=== PATIENT | female | born 1945 | race Caucasian/White ===

== ENCOUNTER 2022-08-21 15:49 | Inpatient (IN) | payer MEDICARE, OTHER ==
[~2022-08-21] VITALS: Ht 172.7 cm; Wt 96.1 kg
[2022-08-21 16:25] LABS: BASOPHILS ABSOLUTE AUTO 0.04 K/mm3 (0.00-0.23); BASOPHILS PERCENT AUTO 0 % (0-2); EOSINOPHILS ABSOLUTE AUTO 0.09 K/mm3 (0.00-0.68); EOSINOPHILS PERCENT AUTO 1 % (0-6); Hematocrit 41.8 % (33.0-51.0); Hemoglobin 14.1 g/dL (11.5-16.0); IMMATURE GRAN ABSOLUTE AUTO 0.04 K/mm3 (0.00-0.10); IMMATURE GRAN PERCENT AUTO 0 % (0-1); LYMPHOCYTES ABSOLUTE AUTO 1.63 K/mm3 (0.84-5.20); LYMPHOCYTES PERCENT AUTO 15 % (21-46); MONOCYTES ABSOLUTE AUTO 1.41 K/mm3 (0.16-1.47); MONOCYTES PERCENT AUTO 13 % (4-13); Mean Corpuscular HGB 28.8 pg (26.0-34.0); Mean Corpuscular HGB Conc 33.7 g/dL (31.5-36.5); Mean Corpuscular Volume 85 fL (80-100); Mean Platelet Volume 11.8 fL (9.1-12.4); NEUTROPHILS ABSOLUTE AUTO 7.63 K/mm3 (1.96-9.15); NEUTROPHILS PERCENT AUTO 70 % (41-73); Platelet Count 226 K/mm3 (150-400); RDW Coefficient Variation 13.6 % (11.7-14.2); RDW Standard Deviation 42.6 fL (35.1-46.3); White Blood Cell Count 10.84 K/mm3 (4.00-11.30)
[2022-08-21 16:49] LABS: Albumin, Blood 3.6 g/dL (3.4-5.0); Bilirubin, Total 0.5 mg/dL (0.1-1.0); Bun/Creatinine Ratio 15.1 (12.0-20.0); Calcium, Blood 11.8 mg/dL (8.5-10.1); Creatinine, Blood 2.59 mg/dL (0.40-1.00); Globulin, Blood 3.7 g/dL (2.2-4.0); Potassium, Blood 2.6 mmol/L (3.5-5.5); Total Protein, Blood 7.3 g/dL (6.4-8.2)
--- NOTE | 2022-08-21 20:17 | NUR ---
assisted patient from bed to bedside commode. Ileana required very frequent cueing and redirection with 2 assist. urine was yellow with sediment and extremely odorous. will notify MD and request US. In addition, do not feel SCD's would be safe for this patient as she has attempted twice to get OOB without calling for assist after instruction. Alarm on, bed locked and in low position. will continue close monitoring
[2022-08-22 01:41] LABS: Source, Urine Clean Catch
[2022-08-22 01:50] LABS: Bilirubin, Urine Neg (Neg); Blood, Urine 1+ (Neg); Glucose Qualitative, Urine Neg (Neg); Ketones, Urine Neg (Neg); Leukocyte Esterase, Urine 1+ (Neg); Nitrite, Urine Pos (Neg); Protein, Urine 1+ (Neg); Urobilinogen, Urine NORM (Normal)
[2022-08-22 01:51] LABS: Appearance, Urine Hazy (Clear); Color, Urine Yellow (P-Yellow)
[2022-08-22 01:52] LABS: Bacteria Many /hpf; Red Blood Cells, Urine 0-2 /hpf (0-2); Squamous Epithelial Cells Few /hpf (Few)
--- NOTE | 2022-08-22 03:19 | NUR ---
call placed to night hospitalist. Urinalysis positive for UTI. Call placed to night hospitalist to inform
[2022-08-22 05:29] LABS: Calcium, Blood 10.2 mg/dL (8.5-10.1); Creatinine, Blood 2.25 mg/dL (0.40-1.00)
--- NOTE | 2022-08-22 18:09 | NUR ---
SHIFT SUMMARY NO ACUTE CHANGES THIS SHIFT. PT IS AOX4 WITH SOME CONFUSION. HER VISITED TODAY. SHE HAD A BM THIS SHIFT AND HAS URINATED THROUGHOUT. SHE HAS BEEN EATING WELL. SLEEPING OFF AND ON WELL. WILL REPORT TO ONCOMING NURSE.
[2022-08-23 05:00] LABS: BASOPHILS ABSOLUTE AUTO 0.04 K/mm3 (0.00-0.23); BASOPHILS PERCENT AUTO 0 % (0-2); EOSINOPHILS ABSOLUTE AUTO 0.18 K/mm3 (0.00-0.68); EOSINOPHILS PERCENT AUTO 2 % (0-6); Hematocrit 36.7 % (33.0-51.0); Hemoglobin 12.3 g/dL (11.5-16.0); IMMATURE GRAN ABSOLUTE AUTO 0.04 K/mm3 (0.00-0.10); IMMATURE GRAN PERCENT AUTO 0 % (0-1); LYMPHOCYTES ABSOLUTE AUTO 1.75 K/mm3 (0.84-5.20); LYMPHOCYTES PERCENT AUTO 20 % (21-46); MONOCYTES ABSOLUTE AUTO 1.26 K/mm3 (0.16-1.47); MONOCYTES PERCENT AUTO 14 % (4-13); Mean Corpuscular HGB Conc 33.5 g/dL (31.5-36.5); Mean Corpuscular Volume 87 fL (80-100); Mean Platelet Volume 12.3 fL (9.1-12.4); NEUTROPHILS ABSOLUTE AUTO 5.64 K/mm3 (1.96-9.15); NEUTROPHILS PERCENT AUTO 64 % (41-73); Platelet Count 165 K/mm3 (150-400); RDW Coefficient Variation 14.1 % (11.7-14.2); Red Blood Cell Count 4.24 M/mm3 (3.80-5.20); White Blood Cell Count 8.91 K/mm3 (4.00-11.30)
[2022-08-23 05:25] LABS: Bun/Creatinine Ratio 15.2 (12.0-20.0); Calcium, Blood 9.9 mg/dL (8.5-10.1); Creatinine, Blood 2.1 mg/dL (0.40-1.00); Potassium, Blood 3.1 mmol/L (3.5-5.5)
--- NOTE | 2022-08-23 07:34 | NUR ---
PATIENT SLEPT IN 2-3 HOUR PERIODS, THEN WOULD ATTEMPT TO GET OOB SETTING ALARM OFF TO USE THE COMMODE. SHE US VERY UNSTEADY ON HER FEET, AND AT NIGHT HAS AN EXTREMELY SHORT TERM MEMORY REQUIRING CONSTANT REDIRECTING TO GET SAFELY TO THE COMMODE AND BACK TO BED. NADEGE HAD NO COMPLAINTS OF PAIN OR DISCOMFORT OVERNIGHT. SHE IS STILL MILDLY TREMULOUS, BUT DEFINATELY IMPROVING SINCE ADMISSION. VERY PLEASANT AND COOPERATIVE, BUT EXTREMELY TANGENTIEL AND FORGETFUL AT NIGHT. HIGH FALL RISK
--- NOTE | 2022-08-23 18:19 | NUR ---
SHIFT SUMMARY PT AOX2-3 WITH CONFUSION. SHE HAS DIFFICULTY FOLLOWING DIRECTIONS AT TIME BUT IS EASILY DIRECTABLE. SHE GETS MORE CONFUSED THE DAY PROGRESSES, MORE SO AT NIGHT. PT HAD A PG PLACED TODAY IN THE LEFT UPPER ARM. INFUSES WELL BUT DOES NOT DRAW. ABX WERE ADJUSTED TODAY AND PROVIDER PLANS FOR THE PT TO STAY A COUPLE MORE DAYS. SHE IS CURRENTLY A I ASSIST TO THE [facility]. WILL REPORT TO ONCOMING NURSE.
[2022-08-24 04:57] LABS: BASOPHILS ABSOLUTE AUTO 0.05 K/mm3 (0.00-0.23); BASOPHILS PERCENT AUTO 1 % (0-2); EOSINOPHILS ABSOLUTE AUTO 0.21 K/mm3 (0.00-0.68); EOSINOPHILS PERCENT AUTO 2 % (0-6); Hematocrit 32.9 % (33.0-51.0); Hemoglobin 11.3 g/dL (11.5-16.0); IMMATURE GRAN ABSOLUTE AUTO 0.03 K/mm3 (0.00-0.10); IMMATURE GRAN PERCENT AUTO 0 % (0-1); LYMPHOCYTES ABSOLUTE AUTO 1.48 K/mm3 (0.84-5.20); LYMPHOCYTES PERCENT AUTO 16 % (21-46); MONOCYTES ABSOLUTE AUTO 1.25 K/mm3 (0.16-1.47); MONOCYTES PERCENT AUTO 14 % (4-13); Mean Corpuscular HGB 29.1 pg (26.0-34.0); Mean Corpuscular HGB Conc 34.3 g/dL (31.5-36.5); Mean Corpuscular Volume 85 fL (80-100); Mean Platelet Volume 11.8 fL (9.1-12.4); NEUTROPHILS ABSOLUTE AUTO 6.22 K/mm3 (1.96-9.15); NEUTROPHILS PERCENT AUTO 67 % (41-73); Platelet Count 154 K/mm3 (150-400); RDW Standard Deviation 43.8 fL (35.1-46.3); Red Blood Cell Count 3.88 M/mm3 (3.80-5.20); White Blood Cell Count 9.24 K/mm3 (4.00-11.30)
[2022-08-24 07:12] LABS: Bun/Creatinine Ratio 16.1 (12.0-20.0); Calcium, Blood 9.2 mg/dL (8.5-10.1); Creatinine, Blood 1.8 mg/dL (0.40-1.00); Potassium, Blood 3.3 mmol/L (3.5-5.5)
--- NOTE | 2022-08-24 07:28 | NUR ---
Shift Summary Pt AOx3, slightly forgetful and confused. Pam gets up to use the bathroom setting of bed alarm, but waits for staff once alarm is activated. Pt is steady on her feet no longer requiring FWW tonight. Powerglide in L arm would not flush, an IV was placed in her RAC using ultrasound. Rcvd LR @ 75. No c/o pain or nausea. Slept well t/o the night except for trips to the bathroom every 2-3 hours. VSS, pleasant and cooperative with care.
--- NOTE | 2022-08-24 16:12 | NUR ---
NOTE PT UP. DRESSED IN HER HOME CLOTHES. SHE THINKS SHE CAN CALL HER TO COME GET HER TONIGHT AND HE WILL HELP HER SNEAK OUT. REMINDED HER THAT SHE IS BEING DISCHARGED TOMORROW PER DR TERAN. SHE HAS PACKED HER BELONGINGS. SHE HAS CALLED HER TO BRING ICE CREAM SO HE CAN SNEAK HER OUT. CONTINUE POC.
--- NOTE | 2022-08-24 16:31 | NUR ---
CONFUSION PT CALLED TO BRING HER VAN[employer]A ICE CREAM SO HE CAN SNEAK HER OUT IN THE CONTAINER. CALLED DR PERDOMO. NO ORDERS. PLANNING TO MOVE HER TO ROOM 347. SHE HAS ATTEMPTED TO WALK OUT TWICE. REDIRECTS EASILY. CONTINUE POC.
--- NOTE | 2022-08-24 17:45 | NUR ---
EVENING NOTE SEE NOTES. PT ARRIVED WITH VANILLA ICE CREAM. HE HELPED WALK HER DOWN TO 347. HE FINDS HER CONFUSION AMUSING. VSS. RIGHT AC H/L PATENT. SHE IS STAYING IN HER STREET CLOTHES. RA. VOIDING PER BATHROOM. GAIT STEADY. CONTINUE POC.
--- NOTE | 2022-08-24 18:38 | NUR ---
ASSUMED CARE OF PATIENT AT 1730 UPON HER TRANSFER FROM ROOM 364. AT BEDSIDE. IVORY IS A&O X 3, PLEASANT, NOT TRYING TO LEAVE UNIT AT THIS TIME. AMBULATES INDEPENDENTLY. DENIES PAIN. WILL CONTINUE TO MONITOR.
--- NOTE | 2022-08-25 02:13 | NUR ---
SHIFT SUMMARY NOC PT A/O X 3 WITH MILD CONFUSION AT TIMES. PT WAS TOLD THAT THEY WOULD BE D/C AND IS FIXATED ON LEAVING. PT IS IN STREET CLOTHES AND PUTS JACKET ON AND GRABS BELONGINGS AND STATES THEY ARE READY TO GO. PT REDIRECTS EASILY WHEN TOLD THAT THEY SHOULD BE D/C 08/25/22. PT IS HERE FOR DX OF CORAL/UTI THAT IS BEING TREATED WITH PO ABX. PT POTASSIUM WAS ALSO 3.3 AND POTASSIUM REPLACEMENT PO WAS GIVEN DURING DAY. PT D/C IS PENDING AM LABS. PT HAD ELEVATED BP AND HOSPITALIST NOTIFIED THAT PT HAS HX OF HTN BUT TAKES NO RX. HOSPITALIST ORDERED AMLODIPINE 5MG NOW AND QD. PT LIVES AT HOME WITH WHO WILL BE PICKING PT UP WHEN PT D/C. PT IS CURRENTLY RESTING WITH BED IN LOWEST POSITION, AND CALL LIGHT WITHIN REACH.
[2022-08-25 05:58] LABS: BASOPHILS ABSOLUTE AUTO 0.05 K/mm3 (0.00-0.23); BASOPHILS PERCENT AUTO 0 % (0-2); EOSINOPHILS ABSOLUTE AUTO 0.16 K/mm3 (0.00-0.68); EOSINOPHILS PERCENT AUTO 1 % (0-6); Hematocrit 36.3 % (33.0-51.0); Hemoglobin 12.6 g/dL (11.5-16.0); IMMATURE GRAN ABSOLUTE AUTO 0.06 K/mm3 (0.00-0.10); IMMATURE GRAN PERCENT AUTO 1 % (0-1); LYMPHOCYTES ABSOLUTE AUTO 1.81 K/mm3 (0.84-5.20); LYMPHOCYTES PERCENT AUTO 16 % (21-46); MONOCYTES ABSOLUTE AUTO 1.64 K/mm3 (0.16-1.47); MONOCYTES PERCENT AUTO 15 % (4-13); Mean Corpuscular HGB Conc 34.7 g/dL (31.5-36.5); Mean Corpuscular Volume 83 fL (80-100); Mean Platelet Volume 12.5 fL (9.1-12.4); NEUTROPHILS ABSOLUTE AUTO 7.48 K/mm3 (1.96-9.15); NEUTROPHILS PERCENT AUTO 67 % (41-73); Platelet Count 180 K/mm3 (150-400); RDW Coefficient Variation 14.1 % (11.7-14.2); Red Blood Cell Count 4.35 M/mm3 (3.80-5.20)
[2022-08-25 06:48] LABS: Bun/Creatinine Ratio 13.2 (12.0-20.0); Calcium, Blood 9.9 mg/dL (8.5-10.1); Creatinine, Blood 1.67 mg/dL (0.40-1.00); Potassium, Blood 3.3 mmol/L (3.5-5.5)
[2022-08-25] MEDS ORDERED: AMLO5 PO (10:54)
[2022-08-25] MEDS ORDERED: CIPR250 PO (10:54)
--- NOTE | 2022-08-25 12:52 | NUR ---
PT DISCHARGED FROM THE UNIT. IV REMOVED. DISCHARGE INSTRUCTIONS REVIEWED. MEDICATIONS FAXED TO PHARMACY. PT LEFT VIA WHEEL CHAIR. TO DRIVE HOME.
== END 2022-08-25 11:32 | disposition home or self-care (01) | DRG 682 ==
LOC: ER 15:49 → MEDS 15:50
PROVIDERS: Internal Medicine; Physician Assistant; ADMIT Internal Medicine
DX: N17.9 Acute kidney failure, unspecified (principal); G92.8 Other toxic encephalopathy; N39.0 Urinary tract infection, site not specified; Z16.29 Resistance to other single specified antibiotic; E86.0 Dehydration; E87.6 Hypokalemia; I10 Essential (primary) hypertension; G25.2 Other specified forms of tremor; R41.89 Other symptoms and signs involving cognitive functions and awareness; K21.9 Gastro-esophageal reflux disease without esophagitis; B96.89 Other specified bacterial agents as the cause of diseases classified elsewhere
CPT/HCPCS: 36415; 80048; 80053; 81001; 83690; 83735; 85025; 87077; 87086; 87186; 93005; 93010; 96361; 96365; 96372; 96375; 99284-25; A9270; G0378; J0696; J0744; J1644; J2405; J3480; J7030; J7050; J7120

== ENCOUNTER → 2025-01-14 | Outpatient (CLI) | payer MEDICARE, OTHER ==
[~2025-01-14] MED LIST: AMLO5 PO; CIPR250 PO
== END | disposition home or self-care (01) ==
LOC: LAB SHORT 13:00 → LAB 13:00
DX: A60.04 Herpesviral vulvovaginitis (principal)
CPT/HCPCS: 87070; 87205

== ENCOUNTER → 2025-05-21 | Outpatient (CLI) | payer MEDICARE, OTHER ==
[2025-05-23 20:51] LABS: HSV SUBTYPE SOURCE VULVAR
== END | disposition home or self-care (01) ==
LOC: LAB SHORT 10:24 → LAB 10:24
PROVIDERS: Obstetrics & Gynecology
DX: A60.04 Herpesviral vulvovaginitis (principal)
CPT/HCPCS: 87529

== ENCOUNTER → 2025-05-29 | Outpatient (CLI) | payer MEDICARE, OTHER | END | disposition home or self-care (01) | LOC: LAB SHORT 13:14 → LAB 13:14 | DX: L28.0 Lichen simplex chronicus (principal); N76.6 Ulceration of vulva | CPT/HCPCS: 88305; 88312 ==